=== PATIENT | male | born 1970 | race African-American/Black ===

== ENCOUNTER 2016-10-25 09:58 | Emergency (ER) | payer SELFPAY ==
[~2016-10-25] VITALS: Ht 170.2 cm; Wt 75.0 kg
[2016-10-25 10:00] VITALS: BP 165/95; PULSE 80; RESP 20; TEMP 98.7; O2SAT 98
--- NOTE | 2016-10-25 10:34 | PD ---
HPI Chief Complaint: ENT Complaint Time Seen by Provider: 10:31 Travel History International Travel<30 days: No Contact w/Intl Traveler<30days: No Traveled to known affect area: No History of Present Illness HPI 46-year-old male presents to the emergency department for evaluation of bilateral ear pressure and decreased hearing for 2 weeks. Patient states that 3 weeks ago he had a "head cold" with runny nose, nasal congestion and cough. States that once his cold resolved he noticed that he had a sensation of clog tears bilaterally. States that he has tried peroxide and [id number] Debrox without improvement of symptoms. States that he feels as though he has a headache around the location of his ears due to the pressure. Denies any fever, chills, nausea, vomiting, lightheadedness, dizziness. No other complaints. PFSH Past Medical History Blood Disorders: No Cancer: No Cardiovascular Problems: Yes Chemotherapy: No Diminished Hearing: No Endocrine: No Gastrointestinal Disorders: No Genitourinary: No Hypertension: Yes Immune Disorder: No Implanted Vascular Access Dvce: No Musculoskeletal: No Neurologic: No Psychiatric: No Reproductive: No Respiratory: No Radiation Therapy: No Past Surgical History Eye Surgery: Yes Other Surgery: Yes (eye surgery in the early 's) Social History Alcohol Use: Yes (OCCAS) Tobacco Use: Yes (1/2 DAY) Substance Use: No Allergies-Medications (Allergen,Severity, Reaction): Coded Allergies: No Known Allergies (Verified , 11/07/14) Reported Meds & Prescriptions Reported Meds & Active Scripts Active No Active Prescriptions or Reported Medications Review of Systems Except as stated in HPI: all other systems reviewed are Neg Physical Exam Narrative GENERAL: Well-nourished and well-developed pleasant patient in no acute distress who is nontoxic appearing. SKIN: Warm and dry. HEAD: Normocephalic and atraumatic. EYES: No injection, drainage, or hyphema noted. PERRLA. EOMI. ENT: No nasal drainage noted. Oropharynx is clear. Bilateral ear canals with cerumen impaction. Unable to view tympanic membrane bilaterally due to cerumen obstructing view. NECK: Supple and the trachea is midline. CARDIOVASCULAR: Regular rate and rhythm. RESPIRATORY: Breath sounds are equal bilaterally with no accessory muscle use, wheezing, rhonchi, or crackles. MUSCULOSKELETAL: No obvious deformities, swelling, cyanosis, or ecchymosis is present throughout the upper and lower extremities. Patient has full range of motion without any signs of neurovascular compromise. NEUROLOGICAL: Awake, alert, and oriented. Normal speech and gait. Cranial nerves are grossly intact. Data Data Last Documented VS Vital Signs Date Time Temp Pulse Resp B/P Pulse Ox O2 Delivery O2 Flow Rate FiO2 10/25/16 10:00 98.7 80 20 165/95 98 Room Air Orders Ear Irrigation (10/25/16 10:31) MDM Medical Decision Making Medical Screen Exam Complete: Yes Emergency Medical Condition: Yes Differential Diagnosis Cerumen impaction versus otitis media versus headache Narrative Course 46-year-old male presents to the emergency department for evaluation of decreased hearing and pressure in the ears for 2 weeks. Patient is afebrile, vital signs are stable. He has cerumen impaction bilaterally. He's tried over- the-counter remedies without improvement. We'll perform ear irrigation here in the ED. Patient reassessed after ear irrigation is performed by nursing staff. Left ear canal is now clear and tympanic membrane is within normal limits. Right ear canal has only soft cerumen noted, no impaction, no erythema, swelling, redness. The patient states he can hear well out of both ears now. Since the right ear has only soft cerumen he is advised to use [id number] debrox. Discussed supportive care with the patient. Advised follow-up with his PCP as needed. Patient verbalizes understanding and agreement with treatment plan. Diagnosis Primary Impression: Impacted cerumen, bilateral Referrals: Primary Care Physician Patient Instructions: Cerumen Impaction (ED), General Instructions Additional Instructions: Use Debrox at home on right ear. Follow-up with your Primary Care Physician. Return to the ED for any acute worsening of symptoms. Med/Other Pt SpecificInfo: No Change to Meds Scripts No Active Prescriptions or Reported Meds Disposition: 01 DISCHARGE HOME Condition: Stable Andra Fuentes Oct 25, 2016 10:34
== END 2016-10-25 11:27 | disposition home or self-care (01) ==
LOC: NEPK 09:58
DX: H61.23 Impacted cerumen, bilateral (principal); R51 Headache; I10 Essential (primary) hypertension; F17.200 Nicotine dependence, unspecified, uncomplicated
CPT/HCPCS: 99283

== ENCOUNTER 2017-01-08 05:23 | Emergency (ER) | payer SELFPAY ==
[~2017-01-08] VITALS: Ht 170.2 cm; Wt 79.5 kg
[2017-01-08 05:25] VITALS: BP 179/111; PULSE 66; RESP 16; TEMP 98.7; O2SAT 100
[2017-01-08] MEDS ORDERED: AMOX500C PO (05:41)
--- NOTE | 2017-01-08 05:44 | PD ---
HPI Chief Complaint: ENT Complaint Time Seen by Provider: 05:41 Travel History International Travel<30 days: No Contact w/Intl Traveler<30days: No Traveled to known affect area: No History of Present Illness HPI 46-year-old black male presents to emergency department with a 2 day history of sore throat and general malaise. He denies any fever or chills. No earache, cough, congestion, nausea, vomiting, diarrhea, pain. No rashes or lesions. Symptoms are moderate. Worse with swallowing. PFSH Past Medical History Blood Disorders: No Diminished Hearing: No Hypertension: Yes Immune Disorder: No Immunizations Current: Yes Tetanus Vaccination: > 5 Years Influenza Vaccination: No Past Surgical History Eye Surgery: Yes Other Surgery: Yes (eye surgery in the early 's) Social History Alcohol Use: Yes (OCCAS) Tobacco Use: Yes (1 PPK A WEEK) Substance Use: No (DENIES ) Allergies-Medications (Allergen,Severity, Reaction): Coded Allergies: No Known Allergies (Verified , 01/08/17) Reported Meds & Prescriptions Reported Meds & Active Scripts Active Amoxicillin 500 Mg Cap 500 Mg PO BID Review of Systems Except as stated in HPI: all other systems reviewed are Neg Physical Exam Narrative GENERAL: Well-developed, well-nourished in no acute distress. Nontoxic appearing. HEAD: Normocephalic, atraumatic. EYES: Pupils equal round and reactive. Extraocular motions intact. No scleral icterus. No injection or drainage. ENT: TMs clear without erythema. The external auditory canals clear. Nose: clear . Posterior pharynx is erythematous and moist. Positive tonsillar edema without exudate. Uvula midline. Airway patent. NECK: Trachea midline.Supple, nontender, moves head freely. No central bony tenderness or spasm. CARDIOVASCULAR: Regular rate and rhythm without murmurs, gallops, or rubs. RESPIRATORY: Clear to auscultation. Breath sounds equal bilaterally. No wheezes , rales, or rhonchi. GASTROINTESTINAL: Abdomen soft, non-tender, nondistended. No hepato-splenomegaly , or palpable masses. No guarding. EXTREMITIES: No clubbing, cyanosis, or edema. No joint tenderness, effusion, or edema noted. BACK: Nontender without deformity or crepitance. No flank tenderness. Data Data Last Documented VS Vital Signs Date Time Temp Pulse Resp B/P (MAP) Pulse Ox O2 Delivery O2 Flow Rate FiO2 01/08/17 05:25 98.7 66 16 179/111 (133) 100 Orders Orders Amoxicillin (Trimox) (01/08/17 05:45) MDM Medical Decision Making Medical Screen Exam Complete: Yes Emergency Medical Condition: Yes Medical Record Reviewed: Yes Differential Diagnosis MDM: High Differential diagnoses: Strep throat, viral pharyngitis, mono, peritonsillar abscess, retropharyngeal abscess, Noel's angina Narrative Course Patient given amoxicillin 500 mg by mouth. This is acute pharyngitis Diagnosis Primary Impression: Acute pharyngitis Qualified Codes: J02.9 - Acute pharyngitis, unspecified Patient Instructions: General Instructions Additional Instructions: Rest. Force fluids. Saltwater gargles. Tylenol and Advil. Chloraseptic [place] Cepastat lozenge. Amoxicillin. Follow-up with a primary care doctor in one week. Return to the ER if any problems. Med/Other Pt SpecificInfo: Prescription(s) given Scripts Amoxicillin (Amoxicillin) 500 Mg Cap 500 MG PO BID for Infection, #20 CAP 0 Refills Prov: Akanksha Burnham MD 01/08/17 Disposition: 01 DISCHARGE HOME Condition: Stable Julien Fabian Jan 08, 2017 05:44
[2017-01-08] MEDS ORDERED: AMOXICILLIN (TRIHYDRATE) 500 MG CAP PO ONE (05:45)
== END 2017-01-08 05:56 | disposition home or self-care (01) ==
LOC: NEPD 05:23
DX: J02.9 Acute pharyngitis, unspecified (principal); F17.200 Nicotine dependence, unspecified, uncomplicated
CPT/HCPCS: 99283

== ENCOUNTER 2017-06-06 06:17 | Emergency (ER) | payer SELFPAY ==
[~2017-06-06] VITALS: Ht 170.2 cm; Wt 77.0 kg
[~2017-06-06 06:17] MED LIST: AMOX500C PO
[2017-06-06 06:18] VITALS: BP 192/101; PULSE 84; RESP 16; TEMP 98.3; O2SAT 97
[2017-06-06] MEDS ORDERED: metroNIDAZOLE 500 MG TAB PO ONE (07:15)
[2017-06-06] MEDS ORDERED: LIDOCAINE HCL 1% 50 ML VIAL INFIL ONE (07:15)
[2017-06-06] MEDS ORDERED: AZITHROMYCIN 600 MG TAB PO ONE (07:15)
[2017-06-06 07:21] LABS: BACTERIA, URINE RARE /hpf; BILIRUBIN, URINE NEG (NEG); BLOOD, URINE TRACE (NEG); GLUCOSE,URINE NEG (NEG); KETONE, URINE NEG (NEG); MUCUS URINE FEW /lpf (OCC); NITRITE,URINE NEG (NEG); PH, URINE 5.5 (5.0-8.5); SPERM, URINE RARE; URINE COLOR YELLOW (YELLW/STRAW); URINE LEUKOCYTE ESTERASE NEG (NEG)
--- NOTE | 2017-06-06 07:27 | PD ---
HPI Chief Complaint: Complaint Time Seen by Provider: 07:22 Travel History International Travel<30 days: No Contact w/Intl Traveler<30days: No Traveled to known affect area: No History of Present Illness HPI 46-year-old Afro-Greek male presents the emergency department with exposure to STD history. Patient states he is here as his girlfriend was told she had Trichomonas. He states neither she nor he hasn't been symptomatic from this. He currently has no pain or dysuria. He denies penile discharge. He has no known drug allergies. [facility] Past Medical History Medical History: Denies Significant Hx Blood Disorders: No Diminished Hearing: No Hypertension: Yes Immune Disorder: No Immunizations Current: Yes Tetanus Vaccination: < 5 Years Influenza Vaccination: No Past Surgical History Eye Surgery: Yes Other Surgery: Yes (eye surgery in the early 's) Social History Alcohol Use: Yes (OCCAS) Tobacco Use: Yes (weekends only) Substance Use: No (DENIES ) Allergies-Medications (Allergen,Severity, Reaction): Coded Allergies: No Known Allergies (Verified , 01/08/17) Reported Meds & Prescriptions Reported Meds & Active Scripts Active Amoxicillin 500 Mg Cap 500 Mg PO BID Review of Systems Except as stated in HPI: all other systems reviewed are Neg General / Constitutional: No: Fever Eyes: No: Visual changes HENT: No: Headaches Cardiovascular: No: Chest Pain or Discomfort Respiratory: No: Shortness of Breath Gastrointestinal: No: Abdominal Pain Genitourinary: No: Dysuria Musculoskeletal: No: Pain Skin: No Rash Neurologic: No: Weakness Psychiatric: No: Depression Endocrine: No: Polydipsia Hematologic/Lymphatic: No: Easy Bruising Physical Exam Narrative GENERAL: Patient appears in no acute distress. SKIN: Warm and dry. Normal color. Normal turgor. No rash. HEAD: Atraumatic. Normocephalic. EYES: Pupils equal and round. No scleral icterus. No injection or drainage. ENT: No nasal bleeding or discharge. Mucous membranes pink and moist. NECK: Trachea midline. Supple and nontender. CARDIOVASCULAR: Regular rate and rhythm. RESPIRATORY: No accessory muscle use. Clear to auscultation. Breath sounds equal bilaterally. GASTROINTESTINAL: Abdomen soft, non-tender, nondistended. Hepatic and splenic margins not palpable. MUSCULOSKELETAL: Extremities without clubbing, cyanosis, or edema. No obvious deformities. NEUROLOGICAL: Awake and alert. No obvious cranial nerve deficits. Motor grossly within normal limits. Five out of 5 muscle strength in the arms and legs. Normal speech. PSYCHIATRIC: Appropriate mood and affect; insight and judgment normal. Data Data Last Documented VS Vital Signs Date Time Temp Pulse Resp B/P (MAP) Pulse Ox O2 Delivery O2 Flow Rate FiO2 06/06/17 06:18 98.3 84 16 192/101 (131) 97 Room Air Orders Orders Gc And Chlamydia Pcr (06/06/17 06:32) Urinalysis - C+S If Indicated (06/06/17 06:32) Ceftriaxone Inj (Rocephin Inj) (06/06/17 07:15) Metronidazole (Flagyl) (06/06/17 07:15) Azithromycin (Zithromax) (06/06/17 07:15) Lidocaine 1% Inj (50 Ml) (Xylocaine 1% I (06/06/17 07:15) Labs Laboratory Tests Test 06/06/17 06:30 Urine Color YELLOW Urine Turbidity CLEAR Urine pH 5.5 Urine Specific [place] 1.028 Urine Protein TRACE mg/dL Urine Glucose (UA) NEG mg/dL Urine Ketones NEG mg/dL Urine Occult Blood TRACE Urine Nitrite NEG Urine Bilirubin NEG Urine Urobilinogen LESS THAN 2.0 MG/DL Urine Leukocyte Esterase NEG Urine RBC 1 /hpf Urine WBC LESS THAN 1 /hpf Urine Bacteria RARE /hpf Urine Mucus FEW /lpf Urine Sperm RARE Microscopic Urinalysis Comment CULT NOT INDICATED MDM Medical Decision Making Medical Screen Exam Complete: Yes Emergency Medical Condition: Yes Differential Diagnosis STD exposure. Trichomonas. Need for empiric treatment. Narrative Course Urinalysis is sent to the lab for UA as well as testing for gonorrhea and chlamydia. Patient is given 1000 mg Rocephin IM as well as 2000 mg metronidazole by mouth, and 1200 mg azithromycin by mouth. Diagnosis Primary Impression: Exposure to STD Referrals: [facility] Dept. Patient Instructions: Condom Use (DC), General Instructions Additional Instructions: Urinalysis is sent to the lab for UA as well as testing for gonorrhea and chlamydia. Patient is given 1000 mg Rocephin IM as well as 2000 mg metronidazole by mouth, and 1200 mg azithromycin by mouth. Med/Other Pt SpecificInfo: No Meds Exist/No RX given Disposition: 01 DISCHARGE HOME Condition: Stable Idania,Deacon F. PA Jun 06, 2017 07:27
[2017-06-06] MEDS ORDERED: LIDOCAINE HCL 1% 20 ML VIAL INFIL ONE (07:45)
== END 2017-06-06 08:37 | disposition home or self-care (01) ==
LOC: NEPD 06:17
DX: Z20.2 Contact with and (suspected) exposure to infections with a predominantly sexual mode of transmission (principal)
CPT/HCPCS: 81001; 87491; 87591; 96372; 99283; J0696

== ENCOUNTER 2018-03-10 01:39 | Observation (INO) ==
[2018-03-10] MEDS ORDERED: MethylPREDNISolone Sod Succinate Inj 125 MG/2 ML Vial IV.PUSH ONE (03:09)
[2018-03-10] MEDS ORDERED: Sodium Chlor 0.9% Inj 500 ML IV.SIG ONE (03:09)
[2018-03-10 03:17] LABS: Baso # (Auto) 0.1 th/mm3 (0.0-0.2); Baso % (Auto) 0.7 % (0.0-2.0); Eos # (Auto) 0.1 th/mm3 (0.0-0.4); Eos % (Auto) 0.8 % (0.0-4.0); Hematocrit 36.3 % (39.0-51.0); Hemoglobin 12.8 gm/dL (13.0-17.0); Lymph # (Auto) 1.6 th/mm3 (1.0-4.8); Lymph % (Auto) 12.6 % (9.0-44.0); Mean Corpuscular HGB Conc 35.3 % (32.0-36.0); Mean Corpuscular Hemoglobin 29.7 pg (27.0-34.0); Mean Corpuscular Volume 84.1 fL (80.0-100.0); Mean Platelet Volume 8.6 fL (7.0-11.0); Mono # (Auto) 0.9 th/mm3 (0.0-0.9); Mono % (Auto) 7.3 % (0.0-8.0); Neut # (Auto) 10.1 th/mm3 (1.8-7.7); Neut % (Auto) 78.6 % (16.0-70.0); Platelet Count 284 th/mm3 (150-450); Red Blood Count 4.32 mil/mm3 (4.50-5.90); Red Cell Distribution Width 14.2 % (11.6-17.2); White Blood Count 12.8 th/mm3 (4.0-11.0)
[2018-03-10 03:40] LABS: Alkaline Phosphatase 52 U/L (45-117); Total Protein 7.5 g/dL (6.4-8.2)
[2018-03-10 03:43] LABS: Mono Screen Neg (Neg)
[2018-03-10 03:44] LABS: Alanine Aminotransferase 24 U/L (12-78); Albumin 3.6 g/dL (3.4-5.0); Anion Gap 7 meq/L (5-15); Aspartate Aminotransferase 21 U/L (15-37); Blood Urea Nitrogen 14 mg/dL (7-18); C-Reactive Protein 3.98 mg/dL (0.00-0.30); Calcium 8.8 mg/dL (8.5-10.1); Chloride 106 meq/L (98-107); Glomerular Filtration Rate Greater Than 89 mL/min (>89); Glucose,Random 93 mg/dL (74-106); Potassium 4.1 meq/L (3.5-5.1); Sodium 141 meq/L (136-145)
--- NOTE | 2018-03-10 04:09 | ED ---
HPI General Chief complaint: Medical Clearance Stated complaint: ent complaint Time Seen by Provider: 03/10/18 01:57 Source: patient Mode of arrival: ambulatory Limitations: no limitations History of Present Illness HPI narrative: She complaining of sore throat for the past 2 days. States that the pain is now radiating into his right ear and it is difficult to swallow. Patient is not complaining of any difficulty breathing. Patient has a history of recurrent tonsillitis. States that he gets it once every year or so and doctors have told him that he might need his tonsils taken out. States that his younger nephew was sick last week with strep throat. Patient has not been running fevers or having chills. Patient admits to smoking 3 [place] cigarettes daily complaint: Sore throat Onset (ago): day(s) (2) Location: mouth (Throat) Radiation: other Severity: moderate Severity scale (1-10): 6 Quality: aching and constant Pain Consistency: constant Relieving factors: none Exacerbating factors: other (Following) Associated symptoms: Reports fever/chills; Denies chest pain, cough, diaphoresis , headaches, nausea/vomiting and weakness Treatments prior to arrival: Reports none Related Data Home Medications Medication Instructions Recorded Confirmed No Known Home Medications 03/10/18 03/10/18 Allergies Allergy/AdvReac Type Severity Reaction Status Date / Time No Known Allergies Allergy Verified 03/10/18 01:52 Review of Systems ROS: all other systems reviewed are negative [facility] Medical History Medical History Patient denies medical problems (Acute) Surgical History Surgical History History of eye surgery (Acute) Family History Family History Other Diabetes Social History Social History Substance History: No History of Abuse Second Hand Smoke Exposure: Yes Smoking Status: Current every day smoker Tobacco Type: Cigarettes Cigarettes Per Day: 5 How Often Do You Have a Drink Containing Alcohol: Monthly or less Recent Travel in [facility] within the Last 8 Weeks: No Recent Out of Country Travel within the Last 8 Weeks: No Immunization History Tetanus Immunization: <5 Years Exam Const General: cooperative, healthy appearing and no acute distress Nutritional Appearance: thin Orientation: alert, awake and oriented x3 HENMT Head: normocephalic and atraumatic Ears: unable to visualize TM bilaterally (Bilateral cerumen impactions) Nose: no nasal discharge and no epistaxis Mouth: moist mucous membranes Throat: abnormal tonsil on the right (Extremely large erythematous tonsils that is on the right side and is pressing over onto the left side. Uvula is not midline it is shifted to the left.) no exudates Other: Patient has posterior right mandibular pain to palpation near salivary glands. No palpable lymphadenopathy in the cervical region anterior or posterior Eyes Sclera: normal sclerae Pupils: PERRL Neck Neck: trachea midline and no JVD Resp Effort & Inspection: no use of accessory muscles Auscultation: clear to auscultation bilaterally Cardio Jugular venous pressure: no JVD Rate: regular rate Rhythm: regular rhythm Heart Sounds: no murmurs GI Inspection: non-distended Palpation: soft, no hepatosplenomegaly and nontender Skin General: dry skin (warm) Neuro General: alert and awake Cranial Nerves: other Speech: speech normal Motor: no movement abnormalities noted Extrem General: normal to inspection, no clubbing, no cyanosis and no edema Psych Mood: congruent mood Affect: normal affect Judgment: judgment good Course Initial Documented Vital Signs Temperature 98.9 F 03/10/18 01:52 Pulse Rate 77 03/10/18 01:52 Respiratory Rate 18 03/10/18 01:52 Blood Pressure 171/90 H 03/10/18 01:52 Pulse Oximetry 99 03/10/18 01:52 Last Documented Vital Signs Temperature 98.2 F 03/10/18 15:46 Pulse Rate 78 03/10/18 15:46 Respiratory Rate 15 03/10/18 15:46 Blood Pressure 153/89 H 03/10/18 15:46 Pulse Oximetry 98 03/10/18 15:46 Medical Decision Making BEAR Attestation BEAR supervised visit: Yes Attestation: I, Dr. Burnham, have reviewed the advance practice practitioner's documentation and am in agreement, met with the patient face to face, made the diagnosis, and the medical decision making was done by me. The patient was initially evaluated by Rach, the BEAR. Please see their complete history and physical. *My assessment and Findings: The patient presents with a history of sore, scratchy throat that began yesterday. The patient reports that he was exposed to strep throat from a family member. The patient denies having any cough or congestion associated with this. He denies having any fevers or chills. The patient's examination is remarkable for significant swelling in the posterior oropharynx specifically on the right side with uvula deviation to the left. During the course of the patient's emergency department visit, the patient's history, examination, and differential diagnosis were reviewed with the patient. The patient was placed on a gambling monitor with oximetry and frequent blood pressure monitoring. The patient had IV access obtained and blood work sent for analysis. The patient was initially provided Rocephin 1 g IV, Solu-Medrol 125 mg IV. The patient's diagnostic studies were reviewed and remarkable for a white count of 12.8, hemoglobin 12.8, platelets 284 with 78.6 neutrophils, Chemistry is remarkable for C-reactive protein that is 3.98. Rapid strep test is positive. Holmes test is negative. CT of the soft tissues of the neck reveals severe right sided tonsillar soft tissue swelling/asymmetry in the posterior oropharynx, central ill-defined low- density but no defining enhancing duke, findings likely represent infection without defined abscess in the proper clinical setting. There is edema in the adjacent parapharyngeal soft tissues and about the right. There is a central punctate calcification within the edema. No enlarged lymph nodes. The patient's results were discussed with the patient, including the plan of care. I explained that further testing and/ or monitoring is indicated based on the patient's history, examination, and/ or laboratory findings. Therefore, I recommended admission for additional evaluation. The patient expressed understanding and was agreeable with this plan. The patient was admitted to the hospital in guarded condition and sent to a bed under the care of the [facility] service. [facility] Narrative Medical decision making narrative: She complaining of sore throat for the past 2 days. States that the pain is now radiating into his right ear and it is difficult to swallow. Patient is not complaining of any difficulty breathing. Patient has a history of recurrent tonsillitis. States that he gets it once every year or so and doctors have told him that he might need his tonsils taken out. States that his younger nephew was sick last week with strep throat. Patient has not been running fevers or having chills. Patient admits to smoking 3 [place] cigarettes daily Physical exam shows an extremely enlarged right tonsil that crosses the midline. Uvula is shifted to the left. Patient will receive blood work and blood cultures along with strep test and throat culture. Patient was also receive a CT of the soft tissues of his neck WBC 12.8, group a strep positive CT shows enlarged right tonsil 2.9 cm by 2 cm with surrounding edema Patient admitted to Dr. Whalen for inpatient observation on consult with ENT Medical Screen Exam Complete: Yes Emergency Medical Condition: Yes Lab Data Lab results reviewed: Yes I reviewed the patient's lab results. Result diagrams: 03/10/18 03:00 03/10/18 03:00 Lab Results 03/10/18 03/10/18 03/10/18 Range/Units 03:00 03:00 03:00 WBC 12.8 H (4.0-11.0) th/mm3 RBC 4.32 L (4.50-5.90) mil/mm3 Hgb 12.8 L (13.0-17.0) gm/dL Hct 36.3 L (39.0-51.0) % MCV 84.1 (80.0-100.0) fL MCH 29.7 (27.0-34.0) pg MCHC 35.3 (32.0-36.0) % RDW 14.2 (11.6-17.2) % Plt Count 284 (150-450) th/mm3 MPV 8.6 (7.0-11.0) fL Neut % (Auto) 78.6 H (16.0-70.0) % Lymph % (Auto) 12.6 (9.0-44.0) % Holmes % (Auto) 7.3 (0.0-8.0) % Eos % (Auto) 0.8 (0.0-4.0) % Baso % (Auto) 0.7 (0.0-2.0) % Neut # (Auto) 10.1 H (1.8-7.7) th/mm3 Lymph # (Auto) 1.6 (1.0-4.8) th/mm3 Holmes # (Auto) 0.9 (0.0-0.9) th/mm3 Eos # (Auto) 0.1 (0.0-0.4) th/mm3 Baso # (Auto) 0.1 (0.0-0.2) th/mm3 WBC Differential . Differential Comment Auto diff final Sodium 141 (136-145) meq/L Potassium 4.1 (3.5-5.1) meq/L Chloride 106 (98-107) meq/L Carbon Dioxide 28.0 (21.0-32.0) meq/L Anion Gap 7 (5-15) meq/L BUN 14 (7-18) mg/dL Creatinine 0.89 (0.60-1.30) mg/dL Estimated GFR Greater than 89 (>89) mL/min Random Glucose 93 (74-106) mg/dL Calcium 8.8 (8.5-10.1) mg/dL Total Bilirubin 0.4 (0.2-1.0) mg/dL AST 21 (15-37) U/L ALT 24 (12-78) U/L Alkaline Phosphatase 52 (45-117) U/L C-Reactive Protein 3.98 H (0.00-0.30) mg/dL Total Protein 7.5 (6.4-8.2) g/dL Albumin 3.6 (3.4-5.0) g/dL Monoscreen Neg (Neg) Imaging Data Attestation: I personally reviewed and interpreted this imaging study as follows : Radiologist's impression: Soft Tissue Neck CT 03/10/18 02:32 CONCLUSION: 1. Severe right-sided tonsillar soft tissue swelling/asymmetry in the posterior oropharynx. Central ill-defined low density but no defined enhancing duke. Findings likely represent infection without defined abscess in the proper clinical setting. There is edema in the adjacent parapharyngeal soft tissues and about the right segmentectomy in the gland. There is central punctate calcification centered within the edema. 2. No enlarged lymph nodes. Discharge Plan Discharge Disposition Patient Disposition: 30 Still Patient Discharge Condition Condition: Stable Discharge Details Diagnosis: Abscess of tonsil, Acute streptococcal pharyngitis, Difficulty swallowing Physicians Team ED Provider: Akanksha Burnham ED Midlevel Provider: Rach Hess Primary Care Provider: Primary Care Elle Whipple Attending Provider: Ping Wilkes Other Providers: Julien Schwab Status ED Status: Left Department Discharge Information Discharge Date/Time: 03/10/18 10:45
--- NOTE | 2018-03-10 05:24 | CT ---
EXAM DATE: 03/10/2018 4:40 AM EST AGE/SEX: 47 years / Male INDICATIONS: Right sided swelling; possible tonsillar abscess or mass. CLINICAL DATA: This is the patient's initial encounter. Patient reports that signs and symptoms have been present for 1 day and indicates a pain score of 6/10. MEDICAL/SURGICAL HISTORY: None. None. RADIATION DOSE: 18.20 CTDI (mGy) COMPARISON: No prior exams available for comparison. TECHNIQUE: Helical acquisition was performed using a multirow detector CT scanner during the adminis tration of 71 ml Omnipaque 350 (iohexol) nonionic water-soluble contrast as a single exam dose. Usi ng automated exposure control and adjustment of the mA and/or kV according to patient size, radiation dose was kept as low as reasonably achievable to obtain optimal diagnostic quality images. DICOM fo rmat image data is available electronically for review and comparison. FINDINGS: Nasopharynx: The nasopharyngeal airway has a normal configuration. No mucosal thickening or mass is seen. Oropharynx: There is marked soft tissue asymmetry with prominence centered at the right tonsillar pi llar. Central hypodensity is seen within this area measuring 2.9 x 2.0 cm. Ill-defined enhancing wall s are not seen. Larynx: The supraglottic, glottic, and infraglottic structures are intact. Parapharyngeal: Ill-defined edema in the right parapharyngeal space adjacent to the oropharynx. Salivary Glands: Soft tissue edema about the right submandibular gland. Lymph Nodes: No enlarged or necrotic-appearing nodes. Thyroid: Homogeneous enhancement without evidence of nodule. Bones: Unremarkable. Lungs: Paraseptal emphysema at the lung apices. CONCLUSION: 1. Severe right-sided tonsillar soft tissue swelling/asymmetry in the posterior oropharynx. Central ill-defined low density but no defined enhancing duke. Findings likely represent infection without d efined abscess in the proper clinical setting. There is edema in the adjacent parapharyngeal soft tis sues and about the right segmentectomy in the gland. There is central punctate calcification centered within the edema. 2. No enlarged lymph nodes. Electronically signed by: Hipolito Cobos MD 03/10/2018 5:23 AM EST
[2018-03-10] MEDS ORDERED: Acetaminophen 325 MG Tablet PO PRN (06:36)
[2018-03-10] MEDS: Sod Chloride 0.9% Inj 1,000 ML IV.CONT SCH ×2 (06:45→21:32)
[2018-03-10] MEDS ORDERED: Morphine Sulfate Inj 2 MG/ML Vial IV.PUSH PRN (08:00)
--- NOTE | 2018-03-10 09:50 | P.HPIM ---
History of Present Illness Primary Care Physician: No Primary Care Physician 47yo m presents with complaints of R ear pain and Right throat pain for two days. He states it started as a tickle in the back of his throat and he developed progressing worse sharp pain and swelling in his throat with painful swallowing and this morning the right side of his face was swollen and he had severe pain radiating from his right ear. He has had multiple similar episodes of strep throat in the past and has been exposed to a child at home with strep throat recently. He denies fever, stridor, sob, cp, cash, cough or other associated symptoms. In the emergency room, ct of neck revealed edema of tonsils with no jameel abscess noted, he was treated with iv solumedrol and rocephin, with improvement in his symptoms. Review of Systems negative for significant contributory symptoms other than noted above for organ systems reviewed Review of Systems: all other systems reviewed are negative [facility] Medical History Medical History Patient denies medical problems (Acute) Surgical History Surgical History History of eye surgery (Acute) Family History Family History Other Diabetes Social History Social History Substance History: No History of Abuse Second Hand Smoke Exposure: Yes Smoking Status: Current every day smoker Tobacco Type: Cigarettes Cigarettes Per Day: 5 How Often Do You Have a Drink Containing Alcohol: Monthly or less Recent Travel in [facility] within the Last 8 Weeks: No Recent Out of Country Travel within the Last 8 Weeks: No Immunization History Tetanus Immunization: <5 Years Medications and Allergies Allergies Allergy/AdvReac Type Severity Reaction Status Date / Time No Known Allergies Allergy Verified 03/10/18 01:52 Home Medications Medication Instructions Recorded Confirmed Type No Known Home Medications 03/10/18 03/10/18 History Active Medications: Active Medications Acetaminophen (Tylenol) 650 mg PO Q4H PRN PRN Reason: Temp > 100.4 Sodium Chloride (Ns Inj) 1,000 mls @ 100 mls/hr IV.CONT .Q10H [facility]IKOL[facility] Last Admin: 03/10/18 06:45 Dose: 100 mls/hr Ceftriaxone Sodium 1,000 mg/ (Sodium Chloride) 100 mls @ 200 mls/hr IV.SIG Q24H [facility] Methylprednisolone Sodium Succinate (Solumedrol Inj) 40 mg IV.PUSH Q8HR [facility] Morphine Sulfate (Morphine Inj) 2 mg IV.PUSH Q4H PRN PRN Reason: breakth pain/unable PO Ondansetron HCl (Zofran Inj) 4 mg IV.PUSH Q6H PRN PRN Reason: NAUSEA OR VOMITING Physical Exam Vital signs: Last Vital Signs Temp 98.9 F 03/10/18 01:52 Pulse 89 03/10/18 06:05 Resp 18 03/10/18 06:05 BP 165/86 H 03/10/18 06:05 Pulse Ox 99 03/10/18 06:05 Intake & Output 03/08/18 03/09/18 03/10/18 03/11/18 06:59 06:59 06:59 06:59 Intake Total 600 / 600 Balance 600 / 600 Weight 74.843 kg Narrative: GEN well-developed well-nourished 47-year-old -[place] gentleman awake alert oriented to person time and place, pleasant in no acute distress HEENT normocephalic atraumatic, Pupils equal reactive, sclerae anicteric, extraocular motion intact, mucosa is moist. posterior pharynx w edematous right tonsillar pillar with thick white exudate moderate tenderness to palpation along preauricular area and Right posterior jaw and sub mandibular lad , R ear TM not visible due to cerumen, no eac erythema noted, R TM clear, no drainage or erythema NECK supple no JVD trachea midline thyroid smooth not enlarged ANT CHEST WALL without mass or tenderness to palpation HEART S1-S2 regular without murmur gallops or clicks LUNGS clear to auscultation without wheeze rales or rhonchi BACK exam is no CVA tenderness or mass ABDOMEN soft nondistended positive bowel sounds no guarding rebound rigidity LYMPH NODES no axillary or inguinal adenopathy EXTREMITIES no clubbing cyanosis or significant edema peripheral pulses palpable +2 NEUROLOGIC cranial nerves II through XII appear grossly intact strength is 5 out of 5 symmetrical no clonus or rigidity SKIN warm and dry with good turgor, small excoriation volar aspect left forearm no other rash or sores noted Results Labs CBC & Chem 7: 03/10/18 03:00 03/10/18 03:00 Imaging Impressions Soft Tissue Neck CT 03/10/18 02:32 CONCLUSION: 1. Severe right-sided tonsillar soft tissue swelling/asymmetry in the posterior oropharynx. Central ill-defined low density but no defined enhancing duke. Findings likely represent infection without defined abscess in the proper clinical setting. There is edema in the adjacent parapharyngeal soft tissues and about the right segmentectomy in the gland. There is central punctate calcification centered within the edema. 2. No enlarged lymph nodes. Caprini VTE Risk Assessment Caprini VTE Risk Assessment: No/Low Risk (score <= 1) Caprini Risk Assessment Model: Point Value = 1 Point Value = 2 Point Value = 3 Point Value = 5 Age 41-60 Minor surgery BMI > 25 kg/m2 Swollen legs Varicose veins or History of unexplained or recurrent spontaneous Oral contraceptives or hormone replacement Sepsis (< 1 month) Serious lung disease, including pneumonia (< 1 month) Abnormal pulmonary function Acute myocardial infarction Congestive heart failure (< 1 month) History of inflammatory bowel disease Medical patient at bed rest Age 61-74 Arthroscopic surgery Major open surgery (> 45 min) Laparoscopic surgery (> 45 min) Malignancy Confined to bed (> 72 hours) Immobilizing plaster cast Central venous access Age >= 75 History of VTE Family history of VTE Factor V Leiden Prothrombin [id number] Lupus anticoagulant Anticardiolipin antibodies Elevated serum homocysteine Heparin-induced thrombocytopenia Other congenital or acquired thrombophilia Stroke (< 1 month) Elective arthroplasty Hip, pelvis, or leg fracture Acute spinal cord injury (< 1 month) Prophylaxis Regimen: Total Risk Factor Score Risk Level Prophylaxis Regimen 0-1 Low Early ambulation 2 Moderate Order ONE of the following: *Sequential Compression Device (SCD) *Heparin 5000 units SQ BID 3-4 Higher Order ONE of the following medications: *Heparin 5000 units SQ TID *Enoxaparin/Lovenox 40 mg SQ daily (WT < 150 kg, CrCl > 30 mL/min) *Enoxaparin/Lovenox 30 mg SQ daily (WT < 150 kg, CrCl > 10-29 mL/min) *Enoxaparin/Lovenox 30 mg SQ BID (WT < 150 kg, CrCl > 30 mL/min) AND/OR *Sequential Compression Device (SCD) 5 or more Highest Order ONE of the following medications: *Heparin 5000 units SQ TID (Preferred with Epidurals) *Enoxaparin/Lovenox 40 mg SQ daily (WT < 150 kg, CrCl > 30 mL/min) *Enoxaparin/Lovenox 30 mg SQ daily (WT < 150 kg, CrCl > 10-29 mL/min) *Enoxaparin/Lovenox 30 mg SQ BID (WT < 150 kg, CrCl > 30 mL/min) AND *Sequential Compression Device (SCD) Assessment and Plan Plan - ACUTE R TONSILITIS due to group strep A, patient is admitted for iv antibiotics, steroids, continue pain control and ENT consult, clears diet if tolerating. -UNCONTROLLED HTN - no history of htn, will start prn meds and monitor -TOBACCO/ NICOTINE ADDICTION - counseled to stop smoking, start nicoderm. Code Status: FULL CODE Discussed Condition With: Patient
[2018-03-10] MEDS: MethylPREDNISolone Sod Succinate Inj 40 MG/ML Vial IV.PUSH SCH ×2 (14:03→21:30)
[2018-03-11] MEDS: Sod Chloride 0.9% Inj 1,000 ML IV.CONT SCH (02:09)
[2018-03-11 04:47] VITALS: O2SAT 97
[2018-03-11] MEDS: MethylPREDNISolone Sod Succinate Inj 40 MG/ML Vial IV.PUSH SCH (05:21)
[2018-03-11 05:52] LABS: Baso % (Auto) 0.2 % (0.0-2.0); Hematocrit 37.3 % (39.0-51.0); Hemoglobin 12.4 gm/dL (13.0-17.0); Lymph # (Auto) 1.3 th/mm3 (1.0-4.8); Lymph % (Auto) 5.8 % (9.0-44.0); Mean Corpuscular HGB Conc 33.1 % (32.0-36.0); Mean Corpuscular Hemoglobin 28.2 pg (27.0-34.0); Mean Corpuscular Volume 85.1 fL (80.0-100.0); Mean Platelet Volume 9.3 fL (7.0-11.0); Mono # (Auto) 0.9 th/mm3 (0.0-0.9); Mono % (Auto) 4.1 % (0.0-8.0); Neut % (Auto) 89.9 % (16.0-70.0); Platelet Count 306 th/mm3 (150-450); Red Blood Count 4.39 mil/mm3 (4.50-5.90); White Blood Count 22.2 th/mm3 (4.0-11.0)
[2018-03-11 06:09] LABS: Anion Gap 7 meq/L (5-15); Blood Urea Nitrogen 14 mg/dL (7-18); Calcium 8.7 mg/dL (8.5-10.1); Carbon Dioxide 24.4 meq/L (21.0-32.0); Chloride 108 meq/L (98-107); Glomerular Filtration Rate Greater Than 89 mL/min (>89); Glucose,Random 130 mg/dL (74-106); Sodium 139 meq/L (136-145)
--- NOTE | 2018-03-11 07:49 | P.CON ---
History of Present Illness Service: ENT Consult date: 03/11/18 Reason for Consult: Right early peritonsillar abscess Primary Care Provider: No Primary Care Physician Chief Complaint: Sore throat History of Present Illness: 47 year old male previous tonsillitis. Report he crossed paths with his nephew who had a sore throat and developed sore throat and swelling. Had a 2 day worsening history. 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 Over night steroids and antibiotics have improved his symptoms and he now feels well. Review of Systems Constitutional: Denies anorexia, Denies fever(s) Ears, Nose, Mouth, and Throat: Reports difficulty swallowing (Now resoled), Reports mouth pain (Now resolved) PMFSH - History History Provided By: Patient - Medical History Medical History: Medical History (Last Reviewed 03/10/18 @ 10:15 by Alicia Carter DO) Patient denies medical problems - Surgical History Surgical History: Surgical History (Last Reviewed 03/10/18 @ 10:15 by Alicia Carter DO) History of eye surgery - Family History Family History: Family History (Last Reviewed 03/10/18 @ 10:17 by Alicia Carter DO) Other Diabetes - Tobacco History Second Hand Smoke Exposure: Yes Tobacco Use In Past 30 Days: Yes Smoking Status: Current every day smoker Tobacco Type: Cigarettes Cigarettes Per Day: 5 - Alcohol History How Often Do You Have a Drink Containing Alcohol: Monthly or less - Substance Use History Substance History: No History of Abuse - Travel History Recent Travel in the [place] Within the Last 8 Weeks: No Recent Travel Out of the Country Within the Last 8 Weeks: No - Immunization History Tetanus Immunization: <5 Years Medications and Allergies Active Medications: Active Medications Acetaminophen (Tylenol) 650 mg PO Q4H PRN PRN Reason: Temp > 100.4 Hydrocodone Bitart/Acetaminophen ([place] 7.5/325) 1 tab PO Q6H PRN PRN Reason: PAIN SCALE 6 TO 10 Enalaprilat (Vasotec Inj) 1.25 mg IV.PUSH Q6H PRN PRN Reason: SBP> OR = 180, DBP> OR = 100 Last Admin: 03/10/18 21:32 Dose: 1.25 mg Sodium Chloride (Ns Inj) 1,000 mls @ 100 mls/hr IV.CONT .Q10H NIKOLAS Last Admin: 03/11/18 02:09 Dose: 100 mls/hr Ceftriaxone Sodium 1,000 mg/ (Sodium Chloride) 100 mls @ 200 mls/hr IV.SIG Q24H [facility] Last Infusion: 03/11/18 06:32 Dose: Infused Methylprednisolone Sodium Succinate (Solumedrol Inj) 40 mg IV.PUSH Q8HR [facility] Last Admin: 03/11/18 05:21 Dose: 40 mg Morphine Sulfate (Morphine Inj) 2 mg IV.PUSH Q4H PRN PRN Reason: breakth pain/unable PO Ondansetron HCl (Zofran Inj) 4 mg IV.PUSH Q6H PRN PRN Reason: NAUSEA OR VOMITING Allergies Allergy/AdvReac Type Severity Reaction Status Date / Time No Known Allergies Allergy Verified 03/10/18 01:52 Home Medications Medication Instructions Recorded Confirmed Type No Known Home Medications 03/10/18 03/10/18 History Physical Exam Vital signs: Vital Signs 03/10/18 10:45 03/10/18 15:46 03/10/18 20:00 Temperature 98.4 F 98.2 F 99.0 F Pulse Rate 69 78 75 Respiratory Rate 16 15 16 Blood Pressure 154/90 H 153/89 H 180/99 H Pulse Oximetry 98 98 97 03/11/18 00:00 03/11/18 04:00 Temperature 98.9 F 98.5 F Pulse Rate 65 70 Respiratory Rate 16 16 Blood Pressure 147/72 H 149/76 H Pulse Oximetry 98 97 Intake & Output 03/10/18 03/11/18 03/11/18 18:59 06:59 18:59 Intake Total 1480 / 1480 1100 / 1100 Balance 1480 / 1480 1100 / 1100 Intake: IV 1000 / 1000 1100 / 1100 NS Inj 1,000 ML @ 100 mls/hr IV 1000 / 1000 1000 / 1000 .CONT .Q10H [facility] Rx#:[id number] Rocephin Inj 1,000 MG In NS Inj 100 / 100 100 ML @ 200 mls/hr IV.SIG Q24H [facility] Rx#:[id number] Oral 480 / 480 Other: # Voids 5 # Urine Diapers 5 - Routine HEENT Exam Head: Present: normocephalic, atraumatic Eye: Present: EOMI, PERRL ENT: Present: mucous membranes moist, oropharynx clear, dentition normal, nares patent, external ear normal. Absent: sinus tenderness - Routine Neck Exam Present: supple, full ROM Results - Labs CBC & Chem 7: 03/11/18 04:44 03/11/18 04:44 Labs: Laboratory Results - last 24 hr 03/11/18 03/11/18 04:44 04:44 WBC 22.2 H RBC 4.39 L Hgb 12.4 L Hct 37.3 L MCV 85.1 MCH 28.2 MCHC 33.1 RDW 14.0 Plt Count 306 MPV 9.3 Neut % (Auto) 89.9 H Lymph % (Auto) 5.8 L [place] % (Auto) 4.1 Eos % (Auto) 0.0 Baso % (Auto) 0.2 Neut # (Auto) 20.0 H Lymph # (Auto) 1.3 [place] # (Auto) 0.9 Eos # (Auto) 0.0 Baso # (Auto) 0.0 WBC Differential . Differential Comment Auto diff final Sodium 139 Potassium 4.0 Chloride 108 H Carbon Dioxide 24.4 Anion Gap 7 BUN 14 Creatinine 0.77 Estimated GFR Greater than 89 Random Glucose 130 H Calcium 8.7 - Imaging CT reviewed report Assessment and Plan - Assessment (1) Abscess of tonsil Code(s): J36 - Peritonsillar abscess Status: Acute (2) Acute streptococcal pharyngitis Code(s): J02.0 - Streptococcal pharyngitis Status: Acute (3) Difficulty swallowing Code(s): R13.10 - Dysphagia, unspecified Status: Acute - Plan Resolved early peritonsillar abscess. Much improved tonsillitis. On regular diet. Can discharge home. Suggest Augmentin 875 mg BID 1 week and a short steroid taper. Follow with ENT as needed. (3) Difficulty swallowing Qualifiers: Dysphagia type: pharyngeal phase Qualified Code(s): R13.13 - Dysphagia, pharyngeal phase
[2018-03-11 09:03] VITALS: RESP 18
[2018-03-11 11:11] VITALS: BP 163/87; PULSE 66; TEMP 98
--- NOTE | 2018-03-11 11:34 | P.PNIM ---
Subjective Interval history: neck pain/ear pain has subsided. no fever/chills. he is now able to eat solid food without any problem. Focused exam-Rt tonsil swelling 2/4, no erythema.few whitish spots seen bilaterally, no discharge. No cervical YAMIL. labs noted-leucocytosis appears higher, but this may be due to steroid since patient is clinically improved. Physical Exam Vital signs: Last Vital Signs Temp 98 F 03/11/18 11:10 Pulse 66 03/11/18 11:10 Resp 18 03/11/18 11:10 BP 163/87 H 03/11/18 11:10 Pulse Ox 97 03/11/18 08:57 Intake & Output 03/09/18 03/10/18 03/11/18 03/12/18 06:59 06:59 06:59 06:59 Intake Total 600 / 600 2580 / 2580 Balance 600 / 600 2580 / 2580 Weight 74.843 kg Results Labs CBC & Chem 7: 03/11/18 04:44 03/11/18 04:44 Labs: Microbiology 03/10/18 02:55 Blood - Peripheral Aerobic Blood Culture - Preliminary No growth in 1 day 03/10/18 02:55 Blood - Peripheral Anaerobic Blood Culture - Preliminary No growth in 1 day 03/10/18 03:00 Blood - Peripheral Aerobic Blood Culture - Preliminary No growth in 1 day 03/10/18 03:00 Blood - Peripheral Anaerobic Blood Culture - Preliminary No growth in 1 day Assessment and Plan (1) Abscess of tonsil: Code(s): J36 - Peritonsillar abscess Status: Acute (2) Acute streptococcal pharyngitis: Code(s): J02.0 - Streptococcal pharyngitis Status: Acute (3) Difficulty swallowing: Code(s): R13.10 - Dysphagia, unspecified Status: Acute Plan Patient clinically stable for discharge with oral Augmentin and Steroid taper. _ (1) Difficulty swallowing Qualifiers: Dysphagia type: pharyngeal phase Qualified Code(s): R13.13 - Dysphagia, pharyngeal phase
== END 2018-03-11 12:05 | disposition home or self-care (01) ==
LOC: NEPC 01:39 → NEDA 05:54 → INTOOBSV 05:54 → NEPFCDU 10:42
PROVIDERS: ADMIT Hospitalist; ATTEND Hospitalist